=== PATIENT | male | born 1935 | race Caucasian/White ===

== ENCOUNTER 2017-04-02 10:48 | Day surgery (SDC) | payer OTHER, BC ==
[~2017-04-02] VITALS: Ht 175.3 cm; Wt 89.3 kg
[~2017-04-02 10:48] MED LIST: CARDURA2 M1 PO; DHEA50 MG PO; GLUCOPHAGE500 MG PO; IRON325 M1 PO; PAXIL20 MG PO; PRAVACHOL20 MG PO; PROSCAR5 MG PO; TOPROL XL25 MG PO
[2017-04-02 11:26] LABS: HEMATOCRIT 29.1 % (38.0-50.0); MCV 86.6 FL (86-99)
[2017-04-02 11:35] LABS: POINT-OF-CARE METER ID UU14174212
[2017-04-02 11:37] VITALS: BP 164/71
[2017-04-02] MEDS ORDERED: HYDROCODON-ACE1 EAC7 PO (14:15)
[2017-04-02 14:33] LABS: POINT-OF-CARE METER ID UU13113675
[2017-04-02 15:09] VITALS: BP 130/48
[2017-04-02 15:47] VITALS: BP 154/63
== END 2017-04-02 15:55 | disposition home or self-care (01) ==
LOC: SDC 10:48
PROVIDERS: Neurological Surgery
DX: M48.8X6 Other specified spondylopathies, lumbar region (principal); M53.3 Sacrococcygeal disorders, not elsewhere classified; I10 Essential (primary) hypertension; E11.9 Type 2 diabetes mellitus without complications; Z79.84 Long term (current) use of oral hypoglycemic drugs; Z87.891 Personal history of nicotine dependence
CPT/HCPCS: 72020; 76000; 82948; 85014; 85018; 86850; 86900; 86901; 88305; J0131; J0690; J1100; J1885; J2250; J3010; J3301; J7120